=== PATIENT | male | born 1995 | race African-American/Black ===

== ENCOUNTER 2016-11-18 08:31 | Emergency (ER) | payer OTHER ==
[~2016-11-18 08:31] MED LIST: VOLTAREN5 ML PO
== END 2016-11-18 09:41 | disposition home or self-care (01) ==
LOC: CED 08:31
DX: L02.31 Cutaneous abscess of buttock (principal); F17.210 Nicotine dependence, cigarettes, uncomplicated
CPT/HCPCS: 99282

== ENCOUNTER 2016-11-20 23:06 | Emergency (ER) | payer OTHER | END 2016-11-21 00:32 | disposition home or self-care (01) | LOC: CED 23:06 | DX: L05.01 Pilonidal cyst with abscess (principal); F17.210 Nicotine dependence, cigarettes, uncomplicated | CPT/HCPCS: 10080; 87070; 87077; 87186; 87205; 99282 ==